=== PATIENT | male | born 1940 | race Caucasian/White ===

== ENCOUNTER 2024-03-25 12:49 | Observation (INO) | payer MEDICARE, SELFPAY ==
[2024-03-25] VITALS (10 sets, daily range): BP systolic 138–171; BP diastolic 80–119; BMI 30.6; BMI 29.8
--- NOTE | 2024-03-25 10:13 | ED.GENMED ---
History of Present Illness
General
Chief Complaint: Weakness
Source: patient
Time Seen by Provider: 03/25/24 10:03
History of Present Illness
History of Present Illness:
83yoM with a history of hypertension presenting via EMS after a fall 4 days ago. Patient states he was walking in his house when he lost his balance and fell on the floor. He denies any head strike or loss of consciousness. Patient was unable to
get up after the fall and was on the ground for the past 4 days. His girlfriend came to the house today and called EMS. Patient denies any acute complaints currently. He has chronic knee pain which is no worse after the fall. He denies any
headache, chest pain, shortness of breath. Patient currently lives alone and uses a cane for ambulation. He was last admitted in March 2023 for rhabdomyolysis. He is not currently on any medications and has not seen his PCP in several years.
Past History
Past History
ED Past Medical History: HTN and Other (Genital herpes )
ED Past Surgical History: Cholecystectomy and Orthopedic (Left leg injury repaired )
Social History
Tobacco: Non-smoker
Alcohol: Occasional
Drug: None
Personal:
Living: alone
Employment: Retired
Family History
Family History: Hypertension and Cancer (Colon cancer); Negative Sudden
Phy Exam
General Physical Exam
General Presentation: well appearing and no apparent distress
General age: appears stated age
General Skin: warm and dry
General Habitus: normal
General Mental: alert
ENT Exam
ENT Exam: normocephalic and other (No external signs of head trauma. No cervical spine tenderness)
Pulmonary Exam
Pulmonary Exam: lungs clear, no respiratory distress, no rales, chest non tender, no crackles and no rhonchi
Neurological Exam
Neurological Exam: alert
Cecile Coma Scale
Eye Opening: Spontaneous
Verbal Response: Oriented
Motor Response: Obeys Commands
GCS Total Score: 15
Musculoskeletal Exam
Musculoskeletal Exam: other (Abrasions noted to R upper back/flank region)
Skin Exam
Skin Exam: normal color and warm/dry
Psychiatric Exam
Psychiatric Exam: normal mood/affect
Course
Orders/Labs/Results
Orders:
Orders
03/25/24 Breakfast
Regular
At Your Request: Full Participation
03/25/24 10:10
CT Cervical Spine W/o Iv Contr Urgent
Comment:
Reason For Exam: unwitnessed fall
0.9% Sodium Chloride 500 ml [Nss] 500 ml IV BOLUS
03/25/24 10:11
Electrocardiogram (*1) Urgent
Reason for Study: Fatigue / Weakness
CT Head W/o Iv Contrast Urgent
Comment:
Reason For Exam: unwitnessed fall
EKG- Treatment ONCE
03/25/24 10:16
Complete Blood Count/With Diff Urgent
Comprehensive Metabolic Panel Urgent
Magnesium Urgent
Total CK [Creatine Phosphokinase] Urgent
Troponin I Urgent
03/25/24 10:55
0.9% Sodium Chloride 500 ml [Nss] 500 ml IV BOLUS
03/25/24 11:34
Urinalysis Reflex To Culture Urgent
Date Specimen was Collected: 03/25/24
Time Specimen was Collected: 11:32
Urine Microscopic Reflex Cult Urgent
Urine Culture Urgent
SARAH Source: U
Specimen Description:
Date Specimen was Collected: 03/25/24
Time Specimen was Collected: 11:32
03/25/24 12:29
Admit/Transfer Patient As Directed
Co-Sign Provider:
Level of Care: Observation services
Assign to:: Telemetry
Physician / Group: htay
Diagnosis: Fall, Rhabdomyolyses, , Low platelets
Reason for Telemetry: Other
Other Reason for Telemetry: Fall eval for arrythmias
Date to Stop Telemetry: 03/27/24
Time to Stop Telemetry: 11:00
Reason for Hospitalization: Fall, Rhabdomyolyses, Low platelets
03/25/24 12:31
Code Status As Directed
Resuscitation Status: Full Code
03/25/24 14:19
0.9% Sodium Chloride 1000 ml [Nss] 1,000 ml IV 60 mls/hr
Bisacodyl [Dulcolax] 10 mg RECTAL [id number] PRN
Docusate W/Senna [Senokot-S] 1 tablet PO BIDPRN PRN
Polyethylene Glycol Powder [Miralax] 17 grams PO DAILYPRN PRN
03/25/24 14:19
Case Management Consult ONCE
Case Management Consult: Discharge Planning
Activity As Directed
Activity Level: With Assistance
Intake/ Output As Directed
Frequency: Per unit guidelines
Vital Signs As Directed
Frequency: Per unit guidelines
Ot Eval And Treat Routine
Treatment: eval BCAT
Pt Eval And Treat Routine
Activity Level: With Assistance
DX Deep Vein Thrombosis Video Routine
03/25/24 15:00
Amlodipine [Norvasc] 5 mg PO DAILY
03/25/24 18:00
Enoxaparin Sodium [Lovenox] 40 mg SC QPM
03/26/24 06:00
Basic Metabolic Panel IN AM
Cardiovascular Evaluation IN AM
Complete Blood Count/With Diff IN AM
Creatine Phosphokinase IN AM
TSH IN AM
Vitamin B12 IN AM
03/27/24 11:00
DC Protocol for Telemetry ONCE
04/01/24 08:00
Aspirin Low Dose EC [Aspir Low (Enteric Coated)] 162 mg PO SA
Abnormal Lab Results
03/25/24 03/25/24
10:16 11:34
Absolute Neuts (auto) 7.0 H 10^3/uL
(1.4-6.5)
Absolute Lymphs (auto) 0.3 L 10^3/uL
(1.2-3.4)
Neutrophils % 88.5 H %
(42.2-75.2)
Lymphocytes % 4.3 L %
(20.5-51.1)
Glucose 115 H mg/dl
(70-99)
Creatine Kinase 1302 H U/L
(55-170)
Urine Ketones 1+ A
(Negative)
Ur Occult Blood Reflex 4+ A
(Negative)
Urine RBC 7-10 A /HPF
(0-2)
Urine Bacteria (Reflex) Moderate A
(Negative)
03/25/24 10:16
03/25/24 10:16
Vital Signs
Initial and Last Documented VS:
Initial Vital Signs
Temp Pulse Resp BP Pulse Ox
97.9 F 97 16 171/90 95
03/25/24 09:47 03/25/24 09:47 03/25/24 09:47 03/25/24 09:47 03/25/24 09:47
Last Documented Vital Signs
Temp Pulse Resp BP Pulse Ox
98 F 97 16 159/93 97
03/25/24 15:03 03/25/24 15:03 03/25/24 15:03 03/25/24 15:03 03/25/24 15:03
MDM/Problems Addressed
Differential Diagnosis Includes:
83yoM here after a fall 4 days ago at home. Was apparently on the floor for 4 days and unable to get up. No complaints currently. VSS. He is awake, alert, with a GCS of 15. There are some abrasions to the R upper back/flank region. Differential
diagnosis includes but is not limited to: Ambulatory dysfunction, failure to thrive, rhabdomyolysis, dehydration
Initial ED plan: Check cardiac labs, CK, UA, EKG, and CT head/cervical spine. IV fluid bolus.
*EKG
Interpreted by ED Provider?: Yes
EKG Intrepretation Date: 03/25/24
Heart Rate: 86
Rate: normal
Rhythm: sinus
[place]: normal axis
Ischemia: non-specific ST changes (ST/T wave changes in V3-V6)
*Critical Care Note
Total Time (30-74mins, 75-104mins- exclusive of procedures): Not Applicable
Update Note
Update Note:
CK mildly elevated at 1300. Renal function preserved. No injuries seen on CT. Patient admitted for further evaluation and management.
ED Attending Note
-
Portions of this chart may have been created with voice recognition software.� Occasional wrong word or��sound alike� substitutions may have occurred due to the inherent limitations of voice recognition software.
Discharge Plan
Departure
Patient Disposition: Admit
Date of Disposition: 03/25/24
Time of Disposition: 11:49
Presentation/result/management discussed w/ accepting MD/DO: Hospitalist
Discharge Problem:
Traumatic rhabdomyolysis, Ambulatory dysfunction, Unwitnessed fall
Interventions
Interventions:
*Risk Screen - Suicide Last Done: 03/25/24 09:47
*General Assessment Last Done: 03/25/24 09:47
*Neglect/Abuse Screening Last Done: 03/25/24 09:47
ED- Fall Risk Assessment Last Done: 03/25/24 10:02
*ED COVID-19 Vaccine History Last Done: 03/25/24 10:05
*Nursing Disposition Last Done: 03/25/24 14:09
ED- Cardiac Assessment Last Done: 03/25/24 10:02
ED- Neurological Assessment Last Done: 03/25/24 10:02
ED- Pulmonary Assessment Last Done: 03/25/24 10:02
Discharge Date and Time
Discharge Date/Time: 03/25/24 14:10
[2024-03-25] MEDS: NSS 500 IV ×2 (10:19→11:31)
[2024-03-25 10:47] LABS: % Basophils 0.1 % (0-2); % Immature Granulocytes 0.5 % (0-0.5); % Lymphocytes 4.3 % (20.5-51.1); % Monocytes 6.6 % (1.7-9.3); % Neutrophils 88.5 % (42.2-75.2); Absolute Lymphocytes 0.3 10^3/uL (1.2-3.4); Absolute Monocytes 0.5 10^3/uL (0.1-0.6); Hematocrit 47.3 % (39.0-52.0); Hemoglobin 15.9 g/dL (13.0-18.0); Mean Corp Hgb Conc. 33.6 g/dL (33.0-37.0); Mean Corpuscular Hgb 30.8 pg (27.0-31.0); Mean Corpuscular Volume 91.5 fL (80.0-94.0); Nucleated Red Blood Cells % 0 % (-); Red Blood Cell Count 5.17 10^6/uL (4.70-6.10); Red Cell Dist. Width 13.5 % (11.5-14.5); White Blood Cell Count 7.9 10^3/uL (4.8-10.8)
[2024-03-25 10:51] LABS: ALT (SGPT) 24 U/L (0-50); AST (SGOT) 47 U/L (17-59); Albumin 4.2 g/dl (3.5-5.0); Alkaline Phosphatase 70 U/L (38-126); Blood Urea Nitrogen 20 mg/dl (9-20); Carbon Dioxide 28 mmol/L (22-30); Chloride 101 mmol/L (98-107); Creatine Phosphokinase 1302 U/L (55-170); Estimated Creatinine Clearance 90 ml/min; Glucose 115 mg/dl (70-99); Magnesium 2.1 mg/dl (1.6-2.3); Potassium 3.5 mmol/L (3.5-5.1); Sodium 138 mmol/L (135-145); Total Bilirubin 0.9 mg/dl (0.2-1.3); Total Protein 6.6 g/dl (6.3-8.2); eGFR > 60.00
[2024-03-25 11:01] LABS: Troponin I 0.022 ng/ml
[2024-03-25 11:58] LABS: Urine Albumin Trace (Neg - Trace); Urine Bilirubin Negative (Negative); Urine Character Clear (Clear); Urine Color Yellow; Urine Glucose Negative (Negative); Urine Ketone 1+ (Negative); Urine Leukocyte Negative (Negative); Urine Nitrite Negative (Negative); Urine Occult Blood 4+ (Negative); Urine Urobilinogen Negative (Neg - 1+)
[2024-03-25 12:22] LABS: Urine Mucus Many
[2024-03-25 12:23] LABS: Urine White Cell 0-2 /HPF (0-5)
[2024-03-25 12:24] LABS: Urine Bacteria Moderate (Negative)
--- NOTE | 2024-03-25 12:25 | HPS.HSE ---
Family Physician
-
Family Physician: Ton Bravo
Chief Complaint
-
Found down fall
History of Present Illness
83M lives alone [facility] for after a fall 4 days ago found this morning by girl friend
- patient recalls the event of fall as ' loss balance and fell on the ground '
- denies any head strike or loss of consciousness.
- unable to get up after the fall and was on the ground for the past 4 days.
- Girl friend came to the house today and called EMS.
- Patient currently lives alone and uses a cane for ambulation.
- He was last admitted in March 2023 for rhabdomyolysis.
- He is not currently on any medications and has not seen his PCP in several years.
ROS:
Patient denies any acute complaints currently.
He has chronic knee pain which is no worse after the fall.
He denies any headache, chest pain, shortness of breath.
Medical History
Past Medical History
Past Medical History: Reports HTN (Not on any meds ) and Other (chr gait dysfunctuion , use cane )
Additional Past Medical History:
B12 def
Past Surgical History: Reports Cholecystectomy and Orthopedic
Social History
Tobacco: Non-smoker
Alcohol: Occasional
Personal:
Living: Alone
Family History
Family History: Not pertinent
Allergies / Home Medications
Allergies reflects when Allergies were last updated in [facility].
Home Medications with original date entered in [facility]
Allergy/Medication List:
Allergies
Allergy/AdvReac Type Severity Reaction Status Date / Time
No Known Allergies Allergy Verified 03/25/24 09:47
Home Medications
aspirin 81 mg tablet,delayed release 162 mg PO SA Blood Clot Prevention/Tx 02/17/23
If medication reconciliation has not been performed, why?: Medication List N/A
Review of Systems
-
Constitutional: Reports No Symptoms
EENT: Reports No Symptoms
Respiratory: Reports No Symptoms
Cardiac: Reports No Symptoms
Abdomen/GI: Reports No Symptoms
: Reports No Symptoms
Musculoskeletal: Reports No Symptoms
Skin: Reports No Symptoms
Neurological: Reports No Symptoms
Endocrine: Reports No Symptoms
Hematologic/Lymphatic: Reports No Symptoms
Psych: Reports No Symptoms
Physical Exam
Vital Signs
Vital Signs
Temp Pulse Resp BP Pulse Ox
97.9 F 90 26 171/90 94
03/25/24 09:47 03/25/24 10:00 03/25/24 10:00 03/25/24 09:47 03/25/24 10:02
Physical Exam
General: Well Developed, Well Nourished, No Apparent Distress, Comfortable, Conversant and Other (unkempt, poor personal hygiene )
HEENT: NormoCephalic, Moist mucous membranes and Atraumatic
Respiratory: Clear
Cardiac: S1/S2 and Regular Rhythm; No Murmur or Rub
GI: Soft, Non Tender, Non Distended and Normal Bowel Sounds; No Organomegaly
Rectal: Deferred by Provider
Musculoskeletal: No Clubbing, No Cyanosis and No Edema
Skin: No Rash
Neuro: Nonfocal/grossly intact
Laboratory Results
-
03/25/24 10:16
03/25/24 10:16
Laboratory Results
Total Bilirubin 0.9 mg/dl (0.2-1.3) 03/25/24 10:16
AST 47 U/L (17-59) 03/25/24 10:16
ALT 24 U/L (0-50) 03/25/24 10:16
Alkaline Phosphatase 70 U/L (38-126) 03/25/24 10:16
Troponin I 0.022 ng/ml 03/25/24 10:16
Data Reviewed
-
CT Scan: Report Reviewed by me
Medical Tests (Nuc Med, Echo, EKG etc): Report Reviewed by me
Lab Data: Labs Reviewed by me
Old Records: Reviewed
Impression/Plan
-
Selected Entries
02/22/23
11:00 03/25/24
09:47 03/25/24
10:00
Resp Rate 26
Blood pressure 165/91 171/90
Laboratory Tests
03/25/24 03/25/24
10:16 11:34
WBC 7.9
Hgb 15.9
Plt Count clumping
Creatinine 0.7
eGFR > 60.00
Glucose 115 H
AST 47
ALT 24
Alkaline Phosphatase 70
Creatine Kinase 1302 H
Troponin I 0.022
Urine Nitrite (Reflex) Negative
Leukocyte Esterase Rfl Negative
Urine RBC Pending
Urine WBC (Reflex) Pending
EKG report
NORMAL SINUS RHYTHM
MINIMAL VOLTAGE CRITERIA FOR LVH, MAY BE NORMAL VARIANT ( R in aVL )
ST and T WAVE ABNORMALITY, CONSIDER ANTERIOR ISCHEMIA
PROLONGED QT
ABNORMAL ECG
WHEN COMPARED WITH ECG OF 05-SEP-2012 00:56,
NONSPECIFIC T WAVE ABNORMALITY, WORSE IN INFERIOR LEADS
T WAVE INVERSION NOW EVIDENT IN ANTERIOR LEADS
03/25/24 CT Head W/o Iv Contrast
- No acute intracranial abnormality
03/25/24 CT Cervical Spine W/o Iv Contr
- No CT evidence for an acute posttraumatic abnormality of the cervical spine
02/18/23 Brain MRI
1. No MRI evidence for acute infarct.
2. Moderate number of tiny chronic intracranial microhemorrhages in the right parietal lobe.
3. Moderate white matter leukoaraiosis in the frontal and parietal lobes.
4. Mild diffuse cerebral and cerebellar volume loss.
5. 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
02/18/23 MRI cervical spine:
1. Moderate-sized central disc-osteophyte complex at C4/C5 causing MODERATE SPINAL CORD COMPRESSION and CENTRAL CANAL STENOSIS.
2. Mild spinal cord compression at C3/C4 and C5/C6.
3. SEVERE RIGHT NEURAL FORAMINAL NARROWING at C3/C4 and C4/C5.
4. Severe discogenic degenerative disease at C4/C5, C5/C6, and C6/C7.
Last hospitalist admission:
Date of Admission: 02/17/23 - Date of Discharge: 02/22/23
DC Dxs
Acute traumatic rhabdomyolysis.
Weakness of unclear etiology.
Cognitive impairment.
Hypertension.
Vitamin B12 deficiency.
ASSESSMENT & PLAN
Found down fall for prolonged duration
Asso. mild Rhabdo with preserved renal function
No CT evidence of Cx spine Fx
NEG HCT
Currently lives alone and uses a cane for ambulation
Denies ETOH use disorder
- IV NS and trend CKs
- PT/OT/CRM consult
Systolic HTN
HX Benign HTN - uncontrol
- No f/u with PCP
- not on any meds
- start amlodipine 5 mg daily
Possible cognitive impairment
- OT consult for BCAT
HX Vit B-12 def
- nl MCV
- check B12 and Folate level
HX mild thrombocytopenia
- current Plt count is reports as clumping
- repeat Plt in AM
Distant HX shingles
DVT Px: LMWH
Full code
Obs TLM
--- NOTE | 2024-03-25 14:30 | PTCARENOTE ---
Received pt from ED via stretcher. Pt ambulated to bed x1 with single point cane. AAOx2-3. Forgetful. Bed alarm placed and plugged in. quality assurance monitor chassis applied. No complaints of pain. Assessed and oriented to room. Pt verbalized understanding of
call bermudez. Call bermudez within close reach. Will continue to monitor.
[2024-03-25] MEDS: NSS 1000 IV (14:59)
[2024-03-25] MEDS: NORVASC 5 MG PO (15:01)
[2024-03-25] MEDS: LOVENOX 40 MG SC (18:05)
[2024-03-26] VITALS (8 sets, daily range): BP systolic 120–172; BP diastolic 69–102; PULSE 83; O2SAT 95
[2024-03-26 07:01] LABS: % Basophils 0.4 % (0-2); % Immature Granulocytes 0.4 % (0-0.5); % Lymphocytes 12.4 % (20.5-51.1); % Monocytes 8.6 % (1.7-9.3); % Neutrophils 76.2 % (42.2-75.2); Absolute Eosinophils 0.2 10^3/uL (0-0.7); Absolute Monocytes 0.7 10^3/uL (0.1-0.6); Absolute Neutrophils 5.8 10^3/uL (1.4-6.5); Hematocrit 42.2 % (39.0-52.0); Hemoglobin 14.7 g/dL (13.0-18.0); Mean Corp Hgb Conc. 34.8 g/dL (33.0-37.0); Nucleated Red Blood Cells % 0 % (-); Red Blood Cell Count 4.74 10^6/uL (4.70-6.10); Red Cell Dist. Width 13.4 % (11.5-14.5); White Blood Cell Count 7.7 10^3/uL (4.8-10.8)
[2024-03-26 07:06] LABS: Blood Urea Nitrogen 13 mg/dl (9-20); Calcium 8.4 mg/dl (8.4-10.2); Carbon Dioxide 29 mmol/L (22-30); Chloride 100 mmol/L (98-107); Creatine Phosphokinase 1077 U/L (55-170); Estimated Creatinine Clearance 93 ml/min; Glucose 90 mg/dl (70-99); HDL Cholesterol 59 mg/dl; LDL Cholesterol, Calculated 64 mg/dl; Potassium 3.5 mmol/L (3.5-5.1); Sodium 134 mmol/L (135-145); Total Cholesterol 144 mg/dl (50-199); Triglyceride 108 mg/dl (10-149); Very Low Density Lipoprotein 21 mg/dl (0-30); eGFR > 60.00
[2024-03-26 07:27] LABS: TSH 1.48 uIU/ml (0.47-4.68)
[2024-03-26 07:46] LABS: Vitamin B12 < 159 pg/ml (239-931)
[2024-03-26] MEDS: NORVASC 5 MG PO (08:05)
[2024-03-26] MEDS: NSS 1000 IV (08:05)
--- NOTE | 2024-03-26 08:45 | VATNOTE ---
Called to restart pt's IV as IV is positional and in the antecubital fossa of the patient's dominant arm. Pt hostile towards this RN regarding previous experiences with IV starts. Pt refusing IV restart at this time. No-no already in place to keep
pt's arm straight. Pt educated about alternate IV locations and how it might benefit him. Pt continues to be hostile and decline. Asked pt to notify PCN if he changes his mind.
--- NOTE | 2024-03-26 08:55 | W.PN.HOSP.TC ---
Today's Communication/Plan
-
see bold
Assessment / Plan
Assessment / Plan
Gen: NAD, AAOx3.
Eyes: EOMI, PERRLA, no scleral icterus.
Neck: supple.
CV: RRR, +S1/S2, no m/r/g.
Resp: CTAB, no rales, wheezes, or rhonchi.
Abd: +BS, soft, NT, ND
Skin: No rashes.
Neuro: CN 2-12 intact, non-focal.
Psych: Normal mood and affect.
03/25/24 CT Head W/o Iv Contrast
- No acute intracranial abnormality
03/25/24 CT Cervical Spine W/o Iv Contr
- No CT evidence for an acute posttraumatic abnormality of the cervical spine
02/18/23 Brain MRI
1. No MRI evidence for acute infarct.
2. Moderate number of tiny chronic intracranial microhemorrhages in the right parietal lobe.
3. Moderate white matter leukoaraiosis in the frontal and parietal lobes.
4. Mild diffuse cerebral and cerebellar volume loss.
5. 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
02/18/23 MRI cervical spine:
1. Moderate-sized central disc-osteophyte complex at C4/C5 causing MODERATE SPINAL CORD COMPRESSION and CENTRAL CANAL STENOSIS.
2. Mild spinal cord compression at C3/C4 and C5/C6.
3. SEVERE RIGHT NEURAL FORAMINAL NARROWING at C3/C4 and C4/C5.
4. Severe discogenic degenerative disease at C4/C5, C5/C6, and C6/C7.
Mild rhabdomyolysis:
-Nontraumatic
-Found down fall for prolonged duration
-cont IVFs
-PT/OT/CM
Essential HTN:
-Norvasc started
Other problems:
Possible cognitive impairment
h/o Vit B-12 def: B12 low, start IM B12
h/o mild thrombocytopenia
h/o shingles
FULL/Lovenox
Anticipated Discharge: Within 24 hours
Subjective/Interval History
-
Date of Service: March 26, 2024
On questioning/review of systems the patient states that he occasionally has point, left-sided chest pain. Denies any acute complaints at this time.
Objective Data
-
Labs:
Laboratory Results
03/26/24
05:46
WBC 7.7
Hgb 14.7
Hct 42.2
Plt Count
Sodium 134 L
Potassium 3.5
Chloride 100
Carbon Dioxide 29
BUN 13
Creatinine 0.5 L
Glucose 90
Calcium 8.4
Vital Signs:
Vital Signs
Temp Pulse Resp BP Pulse Ox
97.7 F 75 16 163/96 95
03/26/24 07:00 03/26/24 08:05 03/26/24 07:00 03/26/24 08:05 03/26/24 07:00
I&O
03/25/24 03/26/24 03/27/24
06:59 06:59 06:59
Intake Total 240 / 240
Output Total 575 / 575
Balance -335 / -335
[2024-03-26] MEDS: CYANOCOBALAMIN 1000 MCG IM (10:21)
[2024-03-26] MEDS: LOVENOX 40 MG SC (17:20)
--- NOTE | 2024-03-26 18:02 | CM ---
Chart reviewed. Patient living in rooming house. There is 1 [address]. He lives alone. He does not drive. He walks independently. He is retired. He used to fix and run machinery. He is here for [place]. He owns a cane. He will either need a Lyft ride
set up or can take the [employer] bus back home, if it's before the holiday. He said his PCP 'skipped [facility]' and his pharmacy is under investigation right now. JUAN form was explained to patient. He verbalized understanding and signed the paper. He waa
given a copy and original placed on chart. Denies at +SDOHs.
ANTICIPATED DISCHARGE PLAN: Home, when medically cleared.
Patient would like to be home by [place]. This is the only time of the year when his grand children from [place] call him and he gets to talk to them.
[2024-03-27 03:00] VITALS: BP 159/94
[2024-03-27] MEDS: NSS 1000 IV (04:09)
[2024-03-27 04:55] VITALS: BP 159/94
[2024-03-27] MEDS: CYANOCOBALAMIN 1000 MCG IM (07:59)
[2024-03-27] MEDS: NORVASC 5 MG PO (07:59)
[2024-03-27 08:00] VITALS: BP 161/95
--- NOTE | 2024-03-27 08:10 | W.PN.HOSP.TC ---
Addendum entered and electronically signed by Adam Green MD 03/27/24 13:41:
Total time spent on d/c = 31 min. This included today's physical exam, progress note, review of laboratory and diagnostic data, preparation of discharge documents and prescriptions, and discussions about the pt's hospital course and discharge plan
with the patient and other medical examiner involved in the patient's care.
Original Note:
Today's Communication/Plan
-
d/c
Assessment / Plan
Assessment / Plan
Gen: NAD, Awake and alert
Eyes: EOMI, PERRLA, no scleral icterus.
Neck: supple.
CV: remains RRR, +S1/S2, no m/r/g.
Resp: remains CTAB, no rales, wheezes, or rhonchi.
Abd: +BS, soft, NT, ND
Skin: No rashes.
Neuro: CN 2-12 intact, non-focal.
Psych: Normal mood and affect.
03/25/24 CT Head W/o Iv Contrast
- No acute intracranial abnormality
03/25/24 CT Cervical Spine W/o Iv Contr
- No CT evidence for an acute posttraumatic abnormality of the cervical spine
02/18/23 Brain MRI
1. No MRI evidence for acute infarct.
2. Moderate number of tiny chronic intracranial microhemorrhages in the right parietal lobe.
3. Moderate white matter leukoaraiosis in the frontal and parietal lobes.
4. Mild diffuse cerebral and cerebellar volume loss.
5. 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
02/18/23 MRI cervical spine:
1. Moderate-sized central disc-osteophyte complex at C4/C5 causing MODERATE SPINAL CORD COMPRESSION and CENTRAL CANAL STENOSIS.
2. Mild spinal cord compression at C3/C4 and C5/C6.
3. SEVERE RIGHT NEURAL FORAMINAL NARROWING at C3/C4 and C4/C5.
4. Severe discogenic degenerative disease at C4/C5, C5/C6, and C6/C7.
Mild rhabdomyolysis:
-Nontraumatic
-Found down fall for prolonged duration
-cont IVFs
-PT/OT/CM
Essential HTN:
-Norvasc started
Other problems:
Possible cognitive impairment
h/o Vit B-12 def: B12 low, cont IM B12
h/o mild thrombocytopenia
h/o shingles
FULL/Lovenox
Medically cleared for discharge. Case management aware.
Anticipated Discharge: Today
Subjective/Interval History
-
Date of Service: March 27, 2024
No new complaints.
Objective Data
-
Labs:
Laboratory Results
03/27/24
08:05
Sodium Pending
Potassium Pending
Chloride Pending
Carbon Dioxide Pending
BUN Pending
Creatinine Pending
Glucose Pending
Calcium Pending
Vital Signs:
Vital Signs
Temp Pulse Resp BP Pulse Ox
98 F 78 18 159/94 97
03/27/24 03:00 03/27/24 03:00 03/27/24 03:00 03/27/24 03:00 03/27/24 03:00
I&O
03/26/24 03/27/24 03/28/24
06:59 06:59 06:59
Intake Total 1979
Output Total 2575 / 257
Balance -595 / -595
[2024-03-27 10:19] LABS: Blood Urea Nitrogen 12 mg/dl (9-20); Calcium 8.7 mg/dl (8.4-10.2); Carbon Dioxide 31 mmol/L (22-30); Chloride 101 mmol/L (98-107); Creatine Phosphokinase 427 U/L (55-170); Estimated Creatinine Clearance 93 ml/min; Glucose 99 mg/dl (70-99); Potassium 3.9 mmol/L (3.5-5.1); Sodium 136 mmol/L (135-145); eGFR > 60.00
[2024-03-27 11:40] VITALS: BP 137/94
--- NOTE | 2024-03-27 11:49 | VNURNOTE ---
Home Health Liaison met with patient at bedside to discuss [facility] nurse/therapy, visits, schedule and homebound status. Patient is agreeable and understands that visits at home will be 2-3 x per week to assess and teach medical management. [facility]
liaison assisted patient in making appt at [facility] for 03/30 1100. Explained that [facility] can see him once seen at clinic. Patient does not have a phone number. He said his girlfriend Corrine Fuentes can be his contact but he didn't know her
#. [facility] brochure provided with contact information. Patient agreed to call office after seen by [facility]. Explained to him that [facility] needs a contact and/or contact phone number for him in order to schedule visits. Patient became agitated and
stated he will call office. [facility] referral completed in [facility].
[2024-03-27] MEDS: FLUAD (65 yr+) 2024-2025 FORMULA 0.5 ML IM (14:18)
--- NOTE | 2024-03-27 14:54 | VNURNOTE ---
Addendum: Rec'ed update from [facility]ST[facility] Palmer that Residency clinic is closed 03/30. Appointment at residency clinic scheduled for 03/31. [facility] referral updated.
--- NOTE | 2024-03-27 15:07 | CM ---
CM reviewed pt with Dr Green- ready for dc
Multiple bedside meetings with pt throughout day
SNF recs by therapy-pt noted to be a 2 person assist
Pt would be eligible for coverage through [facility] waiver
Pt adamantly refusing SNF, will only consider going home for the holidays
Reviewed risks as pt resides alone in a 2nd floor room in a boarding home without a phone in his room
Pt continues to refuse placement
Pt without PCP
New appt at [facility] clinic scheduled on pt's behalf for 03/31 at 2:30pm
Intake appt with Radu CRUZ for services also scheduled on his behalf for 03/30 at 10:15am
Referral made to [facility]- plan to start service after initial PCP appt
SW requested as well for assistance with community resources and transportation
Pt provided appointment information
Pt with 17 steps to his room- unable to negotiate independently at this time
BLS arranged for 0 pickup- pt not pleased with time
Insistent on taking the [facility] home from the hospital as he did not want to for BLS pickup time
Noted his significant other (does not drive) is off work at 3PM and will likely be going to his house after work
Noted he may need assistance with obtaining meds at local pharmacy
Suggested his SO pickup meds as she works near his pharmacy or coordinate delivery ([facility] can deliver for a fee)
SO has working phone and can arrange for med delivery if needed
BLS cancelled
Discharge Disposition- home with [facility] and [facility] appt, [facility], SNF & BLS refusal
--- NOTE | 2024-03-27 15:34 | W.DCSUMMARY ---
Discharge Summary
Discharge Data
Date of Admission: 03/25/24
Date of Discharge: 03/27/24
-
Pending Results: No
Hospital Course
Primary diagnoses:
Mild nontraumatic rhabdomyolysis
Essential hypertension
Vitamin B12 deficiency
Secondary diagnoses:
h/o mild thrombocytopenia
h/o shingles
Consults:
None
Imaging:
03/25/24 CT Head W/o Iv Contrast: No acute intracranial abnormality
03/25/24 CT Cervical Spine W/o Iv Contrast: No CT evidence for an acute posttraumatic abnormality of the cervical spine
Hospital course: 83-year-old male who presented after being found down after a fall as outlined in H&P done on admission. He apparently lost his balance and fell to the ground. There was no report of loss of consciousness or head trauma.
Apparently he had been on the ground for approximately [address] the brain and C-spine were unremarkable as above. Patient had mild rhabdomyolysis with a CPK of 1302. His CPK improved to 427 with IV fluids. He was also found to be vitamin B12
deficient. He received IM vitamin B12 while hospitalized and was discharged on oral vitamin B12. He was discharged in medically stable condition.
Discharge Plan
-
Patient Disposition: Home (Routine Discharge)
Discharge Diagnosis/Procedures: Mild rhabdomyolysis, vitamin B12 deficiency
Condition: Good
Diet: Low Sodium
Activity: No restrictions
Driving Restrictions: Not until seen by your Dr
Blood Work: BMP, CBC in 1 week, Vitamin B12 level in 2 to 4 weeks, prescriptions from PCP.
Activity Restrictions/Additional Instructions:
WednesdayMar 31 2:30pm
Dr Irma Rausch
[facility]
[address] [place] [address] [id number]
[place] [id number]
Referrals:
UNKNOWN - PT DOES,NOT KNOW [Family Provider] - in less than 1 week
Prescriptions:
New
amlodipine 5 mg Tablet
5 mg PO DAILY Qty: 30 0RF
cyanocobalamin (vitamin B-12) 5,000 mcg capsule
5,000 mcg PO DAILY Qty: 30 0RF
Continued
aspirin 81 mg Tablet,Delayed Release (Dr/Ec)
162 mg PO SA
Discharge Orders:
Discharge Patient (As Directed); Ordered 03/27/24
Ordered By: Adam Green
Discharge Date and Time
Discharge Date/Time: 03/27/24 15:14
Print Language: BENGALI
== END 2024-03-27 15:14 | disposition home health service (06) ==
LOC: 3 WEST ACU 12:49
PROVIDERS: Physician Assistant; ADMITTING PHYSICIAN Internal Medicine; ATTENDING PHYSICIAN Internal Medicine; EMERGENCY PHYSICIAN Emergency Medicine
DX: T79.6XXA Traumatic ischemia of muscle, initial encounter (principal); R53.1 Weakness; I10 Essential (primary) hypertension; W01.0XXA Fall on same level from slipping, tripping and stumbling without subsequent striking against object, initial encounter; Y93.01 Activity, walking, marching and hiking; Y92.009 Unspecified place in unspecified non-institutional (private) residence as the place of occurrence of the external cause; G89.29 Other chronic pain; R94.31 Abnormal electrocardiogram [ECG] [EKG]; D69.6 Thrombocytopenia, unspecified; R26.2 Difficulty in walking, not elsewhere classified; M50.321 Other cervical disc degeneration at C4-C5 level; E53.8 Deficiency of other specified B group vitamins; M48.02 Spinal stenosis, cervical region; M25.78 Osteophyte, vertebrae; M50.01 Cervical disc disorder with myelopathy, high cervical region; Z60.2 Problems related to living alone; Z90.49 Acquired absence of other specified parts of digestive tract; Z82.49 Family history of ischemic heart disease and other diseases of the circulatory system; Z80.0 Family history of malignant neoplasm of digestive organs; Z23 Encounter for immunization
CPT/HCPCS: 70450; 72125; 80048; 80053; 80061; 81003; 81015; 82550; 82607; 83735; 84443; 84484; 85025; 87086; 90662; 93005; 96360; 96361; 97116; 97162; 97166; 99285; G0008; G0378

== ENCOUNTER 2024-07-24 10:51 | Observation (INO) | payer MEDICARE, SELFPAY ==
[2024-07-24] VITALS (13 sets, daily range): BP systolic 104–162; BP diastolic 66–120; PULSE 84–115; BMI 33.1
--- NOTE | 2024-07-24 07:41 | ED.GENMED ---
History of Present Illness
General
Chief Complaint: Rectal Bleeding
Source: patient
Exam Limitations: none
Time Seen by Provider: 07/24/24 07:25
History of Present Illness
History of Present Illness:
83-year-old male presents with episode of large volume of bright red blood per rectum that started earlier this morning. He woke up feeling something was not right. He denied abdominal pain chest pain or shortness of breath. He had to sanchez to the
bathroom and had a large amount of red blood. He does not take any blood thinners. He takes a baby aspirin when he remembers but is not regularly. He states he has never had any colonoscopies. He denies shortness of breath and lightheadedness.
No chest pain. No fever. No other complaints at this time
Past History
Past History
ED Past Medical History: HTN and Other (Genital herpes )
ED Past Surgical History: Cholecystectomy and Orthopedic (Left leg injury repaired )
Social History
Tobacco: Non-smoker
Alcohol: Occasional
Drug: None
Personal:
Living: alone
Employment: Retired
Family History
Family History: Hypertension and Cancer (Colon cancer); Negative Sudden
Phy Exam
Physical Exam
Physical Exam:
General: Well-appearing male no acute respiratory distress
HEENT: Normocephalic atraumatic
Heart: Regular rate and rhythm no murmurs
Lungs: Clear no wheeze
Abdomen is soft nontender nondistended
Rectal exam: No obvious hemorrhoid or fissure. There is dark red stool on the tip of the glove that is heme positive.
Extremities: No cyanosis or edema
Course
Orders/Labs/Results
Orders:
Orders
07/24/24 07:46
Type+Screen Urgent
Complete Blood Count/With Diff Urgent
Comprehensive Metabolic Panel Urgent
PTT Urgent
Prothrombin Time Urgent
07/24/24 08:10
ABO2 Urgent
BBK Wristband Number:
Associate notified that ABO2 has been ordered: [id number]
Date: 07/24/24
Time: 08:02
Sheet Combining Operator ID: [id number]
Abnormal Lab Results
07/24/24
07:46
RBC 4.67 L 10^6/uL
(4.70-6.10)
MPV 11.2 H fL
(7.4-10.4)
Lymphocytes % 19.0 L %
(20.5-51.1)
Glucose 123 H mg/dl
(70-99)
Total Protein 6.1 L g/dl
(6.3-8.2)
07/24/24 07:46
07/24/24 07:46
Vital Signs
Initial and Last Documented VS:
Initial Vital Signs
Temp Pulse Resp BP Pulse Ox
98.4 F 69 18 132/86 97
07/24/24 07:24 07/24/24 07:24 07/24/24 07:24 07/24/24 07:24 07/24/24 07:24
Last Documented Vital Signs
Temp Pulse Resp BP Pulse Ox
98.4 F 89 13 139/77 96
07/24/24 07:24 07/24/24 09:15 07/24/24 09:15 07/24/24 09:00 07/24/24 09:15
MDM/Problems Addressed
Differential Diagnosis Includes:
Episode of red rectal bleeding. No obvious fissures hemorrhoids on exam. Question diverticular bleed. He has never had a colonoscopy before. Abdomen exam benign. Vital signs are stable. Will check labs type and screen.
*Critical Care Note
Total Time (30-74mins, 75-104mins- exclusive of procedures): Not Applicable
Update Note
Update Note:
Patient had another episode of dark red stool. Vital signs remained stable. Discussed with emergency room attending. Given multiple episodes of bloody stool will admit to hospital. Considered imaging however abdomen exam is benign.
ED Attending Note
-
Portions of this chart may have been created with voice recognition software.� Occasional wrong word or��sound alike� substitutions may have occurred due to the inherent limitations of voice recognition software.
Discharge Plan
Departure
Patient Disposition: Admit
Date of Disposition: 07/24/24
Time of Disposition: 09:56
Presentation/result/management discussed w/ accepting MD/DO: Hospitalist
Discharge Problem:
Acute GI bleeding
Prescriptions:
No Action
aspirin 81 mg Tablet,Delayed Release (Dr/Ec)
81 mg PO DAILY
acetaminophen [Tylenol] 325 mg Tablet
650 mg PO Q6HPRN PRN (Reason: mild pain)
amlodipine [Norvasc] 10 mg Tablet
10 mg PO DAILY
Referrals:
Kory Bravo MD [Family Provider] -
Interventions
Interventions:
*Risk Screen - Suicide Last Done: 07/24/24 07:25
*General Assessment Last Done: 07/24/24 07:25
*Neglect/Abuse Screening Last Done: 07/24/24 07:25
*ED- Fall Risk Assessment Last Done: 07/24/24 07:28
*ED COVID-19 Vaccine History Last Done: 07/24/24 07:28
JN-Sjtguq-Dcqkqayddl Assessment Last Done: 07/24/24 07:50
ED- Cardiac Assessment Last Done: 07/24/24 07:50
ED- Pulmonary Assessment Last Done: 07/24/24 07:50
Discharge Date and Time
Print Language: HAITIAN
[2024-07-24 07:59] LABS: % Basophils 0.7 % (0-2); % Eosinophils 4.3 % (0-6); % Immature Granulocytes 0.4 % (0-0.5); % Monocytes 7.8 % (1.7-9.3); % Neutrophils 67.8 % (42.2-75.2); Absolute Basophils 0.1 10^3/uL (0-0.2); Absolute Eosinophils 0.3 10^3/uL (0-0.7); Absolute Lymphocytes 1.3 10^3/uL (1.2-3.4); Absolute Monocytes 0.5 10^3/uL (0.1-0.6); Absolute Neutrophils 4.7 10^3/uL (1.4-6.5); Hematocrit 41.9 % (39.0-52.0); Hemoglobin 14.4 g/dL (13.0-18.0); Mean Corp Hgb Conc. 34.4 g/dL (33.0-37.0); Mean Corpuscular Hgb 30.8 pg (27.0-31.0); Mean Corpuscular Volume 89.7 fL (80.0-94.0); Mean Platelet Volume 11.2 fL (7.4-10.4); Nucleated Red Blood Cells % 0 % (-); Platelet Count 161 10^3/uL (130-400); Red Blood Cell Count 4.67 10^6/uL (4.70-6.10); Red Cell Dist. Width 13.2 % (11.5-14.5); White Blood Cell Count 6.9 10^3/uL (4.8-10.8)
[2024-07-24 08:06] LABS: INR 1.08; PT 14.3 Sec (11.4-14.6)
[2024-07-24 08:07] LABS: APTT 27.1 Sec (23.4-35.0)
[2024-07-24 08:14] LABS: ALT (SGPT) 20 U/L (0-50); AST (SGOT) 20 U/L (17-59); Albumin 3.7 g/dl (3.5-5.0); Alkaline Phosphatase 88 U/L (38-126); Blood Urea Nitrogen 17 mg/dl (9-20); Calcium 9.5 mg/dl (8.4-10.2); Carbon Dioxide 30 mmol/L (22-30); Chloride 102 mmol/L (98-107); Estimated Creatinine Clearance 77 ml/min; Glucose 123 mg/dl (70-99); Potassium 4.3 mmol/L (3.5-5.1); Sodium 139 mmol/L (135-145); Total Bilirubin 0.6 mg/dl (0.2-1.3); Total Protein 6.1 g/dl (6.3-8.2); eGFR > 60.00
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
[2024-07-24 10:55] LABS: Hematocrit 40.1 % (39.0-52.0); Hemoglobin 13.8 g/dL (13.0-18.0)
--- NOTE | 2024-07-24 15:36 | HPS.HSE ---
Addendum entered and electronically signed by Orlando Villanueva MD 07/24/24 15:50:
full liquid diet, then adv to lrd tomorrow if tolerating
Original Note:
Family Physician
-
Family Physician: Ton Bravo
Chief Complaint
-
Bright red blood per rectum
History of Present Illness
83-year-old male with past medical history of hypertension, herpes infection, shingles, thrombocytopenia, cholecystectomy, previous CVAs now presents for bright red blood per rectum starting earlier this morning. Patient did not have any abdominal
pain, chest pain, shortness of breath. Had to sanchez to the bathroom, and had a large amount of red blood noted in the toilet. He is on intermittent aspirin, and no anticoagulation. Of note, had another episode of dark red stool in the emergency
room. Decision from ED was to admit the patient. Has never had any colonoscopies. Further, wants to avoid colonoscopies unless truly needed. Otherwise denies fever, chills, nausea, vomiting. Patient remains hemodynamic stable with blood
pressure 136/86, respiratory rate of 20, pulse 86, 97% on room air. Hemoglobin at approximately 14. Platelets are 161. Patient's abdomen is nontender, nondistended.
Medical History
Past Medical History
Past Medical History: Reports HTN (Not on any meds ) and Other (chr gait dysfunctuion , use cane )
Additional Past Medical History:
B12 def
Past Surgical History: Reports Cholecystectomy and Orthopedic
Social History
Tobacco: Non-smoker
Alcohol: Occasional
Personal:
Living: Alone
Family History
Family History: Not pertinent
Allergies / Home Medications
Allergies reflects when Allergies were last updated in [facility].
Home Medications with original date entered in [facility]
Allergy/Medication List:
Allergies
Allergy/AdvReac Type Severity Reaction Status Date / Time
No Known Allergies Allergy Verified 03/25/24 09:47
Home Medications
aspirin 81 mg tablet,delayed release 162 mg PO SA Blood Clot Prevention/Tx 02/17/23
If medication reconciliation has not been performed, why?: Medication List N/A
Review of Systems
-
History Source: Patient
A 12 point ROS was completed and negative except as noted: Yes
Physical Exam
Vital Signs
Vital Signs
Temp Pulse Resp BP Pulse Ox
98.4 F 86 20 136/86 97
07/24/24 07:24 07/24/24 15:24 07/24/24 15:24 07/24/24 15:24 07/24/24 15:24
Physical Exam
General: Well Developed, Well Nourished, No Apparent Distress, Comfortable, Conversant and Other (unkempt, poor personal hygiene )
HEENT: NormoCephalic, Moist mucous membranes and Atraumatic
Respiratory: Clear
Cardiac: S1/S2 and Regular Rhythm; No Murmur or Rub
GI: Soft, Non Tender, Non Distended and Normal Bowel Sounds; No Organomegaly
Rectal: Deferred by Provider
Musculoskeletal: No Clubbing, No Cyanosis and No Edema
Skin: No Rash
Neuro: Nonfocal/grossly intact
Laboratory Results
-
07/24/24 07:46
Laboratory Results
PT 14.3 Sec (11.4-14.6) 07/24/24 07:46
INR 1.08 07/24/24 07:46
APTT 27.1 Sec (23.4-35.0) 07/24/24 07:46
Total Bilirubin 0.6 mg/dl (0.2-1.3) 07/24/24 07:46
AST 20 U/L (17-59) 07/24/24 07:46
ALT 20 U/L (0-50) 07/24/24 07:46
Alkaline Phosphatase 88 U/L (38-126) 07/24/24 07:46
Data Reviewed
-
Lab Data: Labs Reviewed by me
Impression/Plan
-
IMPRESSION:
83-year-old male with past medical history of hypertension, herpes infection, shingles, thrombocytopenia, cholecystectomy now presents for bright red blood per rectum
PLAN:
#Bright red blood per rectum
- Hgb at 14
- Assess while on ASA as should be
� Suspect hemorrhoids versus diverticular disease
� Trend CBC, hemoglobin every 8 hours
� Maintain hemoglobin goal greater than 7, transfuse as needed
� Maintain 2 peripheral IVs
� If significant drop in hemoglobin or worsening/continued bright red blood per rectum, then can consult gastroenterology, otherwise more than likely can be seen outpatient. Especially since patient is not on anticoagulation. Further, patient wants
to avoid colonoscopy unless truly needed
� Monitor hemodynamics
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
� Patient intermittently takes aspirin, admits he forgets
� Continue aspirin
� Monitor for bleeding
#Essential hypertension
� Holding antihypertensive in setting of bleed
#Possible cognitive impairment
-h/o Vit B-12 def: B12 low
-h/o mild thrombocytopenia
-h/o shingles
#DVT ppx
-SCDs
[2024-07-24] MEDS: ASPIR LOW (ENTERIC COATED) 81 MG PO (17:03)
[2024-07-24 20:19] LABS: Hematocrit 34.2 % (39.0-52.0); Hemoglobin 12.2 g/dL (13.0-18.0)
[2024-07-25 03:00] VITALS: BP 102/68
[2024-07-25 07:46] VITALS: BP 117/77
[2024-07-25 08:04] LABS: Hematocrit 35.3 % (39.0-52.0); Hemoglobin 12.3 g/dL (13.0-18.0); Mean Corp Hgb Conc. 34.8 g/dL (33.0-37.0); Mean Corpuscular Hgb 31.5 pg (27.0-31.0); Mean Corpuscular Volume 90.5 fL (80.0-94.0); Mean Platelet Volume 10.4 fL (7.4-10.4); Platelet Count 188 10^3/uL (130-400); Red Cell Dist. Width 13.2 % (11.5-14.5); White Blood Cell Count 7.8 10^3/uL (4.8-10.8)
[2024-07-25] MEDS: ASPIR LOW (ENTERIC COATED) 81 MG PO (08:04)
[2024-07-25 08:44] LABS: ALT (SGPT) 16 U/L (0-50); AST (SGOT) 17 U/L (17-59); Albumin 3.3 g/dl (3.5-5.0); Alkaline Phosphatase 50 U/L (38-126); Blood Urea Nitrogen 16 mg/dl (9-20); Calcium 9.1 mg/dl (8.4-10.2); Carbon Dioxide 30 mmol/L (22-30); Chloride 103 mmol/L (98-107); Estimated Creatinine Clearance 88 ml/min; Glucose 106 mg/dl (70-99); Potassium 4.7 mmol/L (3.5-5.1); Sodium 136 mmol/L (135-145); Total Bilirubin 0.9 mg/dl (0.2-1.3); Total Protein 5.5 g/dl (6.3-8.2); eGFR > 60.00
[2024-07-25 11:16] VITALS: BP 108/71
--- NOTE | 2024-07-25 13:06 | W.PN.HOSP.TC ---
Today's Communication/Plan
-
monitor hgb additional 24 hours
Assessment / Plan
Assessment / Plan
Physical Exam
General: Well Developed, Well Nourished, No Apparent Distress, Comfortable, Conversant and Other (unkempt, poor personal hygiene )
HEENT: NormoCephalic, Moist mucous membranes and Atraumatic
Respiratory: Clear
Cardiac: S1/S2 and Regular Rhythm; No Murmur or Rub
GI: Soft, Non Tender, Non Distended and Normal Bowel Sounds; No Organomegaly
Rectal: Deferred by Provider
Musculoskeletal: No Clubbing, No Cyanosis and No Edema
Skin: No Rash
Neuro: Nonfocal/grossly intact
83-year-old male with past medical history of hypertension, herpes infection, shingles, thrombocytopenia, cholecystectomy now presents for bright red blood per rectum
PLAN:
#Bright red blood per rectum
- Hgb down to 12.3, baseline appx at 15
- Assess while on ASA as should be
� Suspect hemorrhoids versus diverticular disease
� Trend CBC, hemoglobin every 8 hours
� Maintain hemoglobin goal greater than 7, transfuse as needed
� Maintain 2 peripheral IVs
� If significant drop in hemoglobin or worsening/continued bright red blood per rectum, then can consult gastroenterology, otherwise more than likely can be seen outpatient. Especially since patient is not on anticoagulation. Further, patient wants
to avoid colonoscopy unless truly needed
� Monitor hemodynamics
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
� Patient intermittently takes aspirin, admits he forgets
� Continue aspirin
� Monitor for bleeding
#Essential hypertension
� Holding antihypertensive in setting of bleed
#Possible cognitive impairment
-h/o Vit B-12 def: B12 low
-h/o mild thrombocytopenia
-h/o shingles
#DVT ppx
-SCDs
Anticipated Discharge: Within 24 hours
Subjective/Interval History
-
Date of Service: July 25, 2024
had BRBPR yesterday as well
Objective Data
-
Labs:
Laboratory Results
07/25/24
07:36
WBC 7.8
Hgb 12.3 L
Hct 35.3 L
Plt Count 188
Sodium 136
Potassium 4.7
Chloride 103
Carbon Dioxide 30
BUN 16
Creatinine 0.7
Glucose 106 H
Calcium 9.1
Total Bilirubin 0.9
AST 17
ALT 16
Alkaline Phosphatase 50
Vital Signs:
Vital Signs
Temp Pulse Resp BP Pulse Ox
99.1 F 90 16 108/71 97
07/25/24 11:16 07/25/24 11:16 07/25/24 11:16 07/25/24 11:16 07/25/24 11:16
I&O
07/24/24 07/25/24 07/26/24
06:59 06:59 06:59
Intake Total 850 / 850
Output Total 100 / 100
Balance -100 / -100 850 / 850
Review of Systems
-
History Source: Patient
All other systems: Not reviewed unless documented
Physical Exam
-
General: Well Developed, Well Nourished and No Apparent Distress
HEENT: Normocephalic, Atraumatic and Moist Mucous Membranes
Respiratory: Clear to Auscultation; Negative Wheezes, Rales or Rhonchi
Cardiac: Regular Rhythm and S1/S2
GI: Soft, Nontender and Nondistended
Musculoskeletal: No Clubbing, No Cyanosis, No Edema and Other (gait is broadbased with short steps and pt appears very cautious about maintaining balance)
Neuro: Awake, Alert, Oriented and Other (hip flexors weak, achilles minimal weakness, upper ext excellent strength, had pt stand, barely able to stand, walked with short shuffling gait, possibly a little better than yesterday, but obviously with
significant impairment)
Psych: Calm and Intact Judgement/Insight
Data Reviewed
-
Labs: Labs Reviewed by me
[2024-07-25 15:08] VITALS: BP 141/83
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
--- NOTE | 2024-07-25 15:24 | PTCARENOTE ---
Pt. had another large bloody BM- darker red liquid stool with clots. MD updated, CT ordered as well as repeat CBC. Pt. remains asymptomatic.
[2024-07-25 17:22] LABS: Hematocrit 34.5 % (39.0-52.0); Hemoglobin 12.1 g/dL (13.0-18.0); Mean Corp Hgb Conc. 35.1 g/dL (33.0-37.0); Mean Corpuscular Volume 88.5 fL (80.0-94.0); Mean Platelet Volume 11.1 fL (7.4-10.4); Platelet Count 161 10^3/uL (130-400); Red Cell Dist. Width 13.2 % (11.5-14.5); White Blood Cell Count 9.1 10^3/uL (4.8-10.8)
[2024-07-25 19:30] VITALS: BP 121/77
[2024-07-25] MEDS: LOPRESSOR 12.5 MG PO (19:57)
[2024-07-25 23:30] VITALS: BP 128/91
[2024-07-25 23:49] LABS: Hemoglobin 10.9 g/dL (13.0-18.0); Mean Corp Hgb Conc. 35.2 g/dL (33.0-37.0); Mean Corpuscular Hgb 31.1 pg (27.0-31.0); Mean Corpuscular Volume 88.6 fL (80.0-94.0); Mean Platelet Volume 10.9 fL (7.4-10.4); Platelet Count 167 10^3/uL (130-400); Red Cell Dist. Width 13.2 % (11.5-14.5); White Blood Cell Count 8.1 10^3/uL (4.8-10.8)
[2024-07-26 03:00] VITALS: BP 112/72
[2024-07-26 06:36] LABS: Hematocrit 31.2 % (39.0-52.0); Hemoglobin 10.8 g/dL (13.0-18.0); Mean Corp Hgb Conc. 34.6 g/dL (33.0-37.0); Mean Corpuscular Hgb 30.8 pg (27.0-31.0); Mean Corpuscular Volume 88.9 fL (80.0-94.0); Mean Platelet Volume 11.5 fL (7.4-10.4); Platelet Count 141 10^3/uL (130-400); Red Blood Cell Count 3.51 10^6/uL (4.70-6.10); Red Cell Dist. Width 13.2 % (11.5-14.5); White Blood Cell Count 6.9 10^3/uL (4.8-10.8)
[2024-07-26 07:21] VITALS: BP 136/93
[2024-07-26] MEDS: ASPIR LOW (ENTERIC COATED) 81 MG PO (07:25)
[2024-07-26] MEDS: LOPRESSOR 12.5 MG PO (07:25)
--- NOTE | 2024-07-26 08:20 | PTCARENOTE ---
Pt. refusing Q4 orthostatic VS, education on purpose provided, pt. verbalizes understanding but still refusing.
[2024-07-26 08:38] LABS: ALT (SGPT) 15 U/L (0-50); AST (SGOT) 17 U/L (17-59); Albumin 3.4 g/dl (3.5-5.0); Alkaline Phosphatase 75 U/L (38-126); Blood Urea Nitrogen 16 mg/dl (9-20); Calcium 8.7 mg/dl (8.4-10.2); Carbon Dioxide 23 mmol/L (22-30); Chloride 105 mmol/L (98-107); Estimated Creatinine Clearance 103 ml/min; Glucose 99 mg/dl (70-99); Potassium 4.1 mmol/L (3.5-5.1); Sodium 137 mmol/L (135-145); Total Bilirubin 0.5 mg/dl (0.2-1.3); Total Protein 5.4 g/dl (6.3-8.2); eGFR > 60.00
--- NOTE | 2024-07-26 09:03 | CM ---
Addendum entered by Ana Rosa Garcia 07/26/24 15:07:
Leslie from [facility] [employer] protective services onsite visit today.
Application for [facility] transit completed
She will be doing an onsite visit at the patient's home on 08/02 & will complete application for free phone
Per Leslie patient had an assessment in home in [place] & is medically eligible for waiver-she will follow-up
declined MOW, but Leslie will revisit conversation with him next week.
Leslie will follow up with Virginia from Dr. Bravo's office to set up an appt for him.
CM called [place] & gave her information & discussed VN once seen by Dr. Bravo
Virginia stated Dr. Bravo will not sign VN orders until patient seen in office.
Patient declines colonoscopy that was recommended. Discharged AMA
PLAN: discharged to home, AMA -Leslie from [facility] [employer] protective case opened and will be following
transportation via [place]
I
Addendum entered by Ana Rosa Garcia 07/26/24 12:03:
Met with patient at bedside, continues to state 'I want to get out of this rat hole'
CM spoke with Leslie from protective services & she will do a site visit today at 2:30 - patient agreeable to stay inpatient until she arrives to do her evaluation. Leslie also stated to CM that she can assist with the application for getting him a
free phone & transportation.
Original Note:
Spoke with Claudia from [facility]
unable to provide follow-up information of case initiated by previous CM
Spoke with Virginia from Dr. Bravo's office - she stated she faxed the paperwork today to [facility]
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
[2024-07-26 11:14] VITALS: BP 136/84
--- NOTE | 2024-07-26 12:55 | W.PN.HOSP.TC ---
Addendum entered and electronically signed by Orlando Villanueva MD 07/27/24 15:54:
[id number]
Original Note:
Today's Communication/Plan
-
Scope v possible AMA
Assessment / Plan
Assessment / Plan
Physical Exam
General: Well Developed, Well Nourished, No Apparent Distress, Comfortable, Conversant and Other (unkempt, poor personal hygiene )
HEENT: NormoCephalic, Moist mucous membranes and Atraumatic
Respiratory: Clear
Cardiac: S1/S2 and Regular Rhythm; No Murmur or Rub
GI: Soft, Non Tender, Non Distended and Normal Bowel Sounds; No Organomegaly
Rectal: Deferred by Provider
Musculoskeletal: No Clubbing, No Cyanosis and No Edema
Skin: No Rash
Neuro: Nonfocal/grossly intact
83-year-old male with past medical history of hypertension, herpes infection, shingles, thrombocytopenia, cholecystectomy now presents for bright red blood per rectum
PLAN:
#Bright red blood per rectum
#Acute blood loss anemia
- Hgb down to 10.8, baseline appx at 15
- Assess while on ASA as should be
� Suspect hemorrhoids versus diverticular disease
� Trend CBC
� Maintain hemoglobin goal greater than 7, transfuse as needed
� Maintain 2 peripheral IVs
�Engaged GI - offered scope; Patient initially was okay for colonoscopy with me and then apparently declined with gastroenterology as patient felt forced. Informed of risks of not doing colonoscopy, and patient refusing despite this.
-Monitor hemodynamics
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
� Patient intermittently takes aspirin, admits he forgets
� Continue aspirin
� Monitor for bleeding
#Essential hypertension
� Holding antihypertensive in setting of bleed
#Possible cognitive impairment
-h/o Vit B-12 def: B12 low
-h/o mild thrombocytopenia
-h/o shingles
#DVT ppx
-SCDs
Anticipated Discharge: Within 24 hours
Subjective/Interval History
-
Date of Service: July 26, 2024
No further bloody bowel movements although hemoglobin dropped to 10.8. Patient initially was okay for colonoscopy and then apparently declined with gastroenterology as patient felt forced. Informed of risks of not doing colonoscopy, and patient
refusing despite this.
Objective Data
-
Labs:
Laboratory Results
07/26/24
06:07
WBC 6.9
Hgb 10.8 L
Hct 31.2 L
Plt Count 141
Sodium 137
Potassium 4.1
Chloride 105
Carbon Dioxide 23
BUN 16
Creatinine 0.6 L
Glucose 99
Calcium 8.7
Total Bilirubin 0.5
AST 17
ALT 15
Alkaline Phosphatase 75
Vital Signs:
Vital Signs
Temp Pulse Resp BP Pulse Ox
97.7 F 75 16 136/84 97
07/26/24 11:14 07/26/24 11:14 07/26/24 11:14 07/26/24 11:14 07/26/24 11:14
I&O
07/25/24 07/26/24 07/27/24
06:59 06:59 06:59
Intake Total 2049 / 2049
Output Total 100 / 100 1000 / 1000
Balance -100 / -100 1050 / 1050
Review of Systems
-
History Source: Patient
All other systems: Not reviewed unless documented
Data Reviewed
-
Labs: Labs Reviewed by me
[2024-07-26 15:19] VITALS: BP 143/88
--- NOTE | 2024-07-27 15:54 | W.DS.TRANS ---
DC Summary - [employer]
-
Discharge Instructions:
Instructions:
Stand-Alone Forms:
Changes to Home Medications: No
Discharge Medications:
DC Medications w/original date entered in [email or web address]
aspirin 81 mg tablet,delayed release 81 mg PO DAILY Blood Clot Prevention/Tx 02/17/23
acetaminophen 325 mg tablet (Tylenol) 650 mg PO Q6HPRN PRN mild pain 07/24/24
amlodipine 10 mg tablet (Norvasc) 10 mg PO DAILY Blood Pressure 07/24/24
Home Medication Changes
na
Pending Results: No
== END 2024-07-26 15:41 | disposition left against medical advice (07) ==
LOC: 3 WEST ACU 10:51
PROVIDERS: Physician Assistant; ADMITTING PHYSICIAN Internal Medicine; CONSULT PHYSICIAN Student in an Organized Health Care Education/Training Program; EMERGENCY PHYSICIAN Emergency Medicine; FAMILY PHYSICIAN Internal Medicine
DX: K62.5 Hemorrhage of anus and rectum (principal); I63.81 Other cerebral infarction due to occlusion or stenosis of small artery; Z86.73 Personal history of transient ischemic attack (TIA), and cerebral infarction without residual deficits; Z79.82 Long term (current) use of aspirin; I10 Essential (primary) hypertension; F17.290 Nicotine dependence, other tobacco product, uncomplicated; K92.2 Gastrointestinal hemorrhage, unspecified; K57.30 Diverticulosis of large intestine without perforation or abscess without bleeding; D62 Acute posthemorrhagic anemia
CPT/HCPCS: 74174; 80053; 85014; 85018; 85025; 85027; 85610; 85730; 86850; 86900; 86901; 93005; 99285; G0378; Q9967